=== PATIENT | female | born 1980 | race Caucasian/White ===

== ENCOUNTER 2021-12-03 23:01 | Emergency (ER) | payer SELFPAY ==
[2021-12-03 23:51] LABS: BASOPHIL 1.3 % (0-2); BILIRUBIN NEGATIVE (NEGATIVE); BLOOD 1+ Ery/uL (NEGATIVE); CLARITY CLEAR (CLEAR); COLOR YELLOW (YELLOW); EOSINOPHIL 3.8 % (0-5); GLUCOSE (U) NORMAL (NORMAL); HCT 47.8 % (37.0-47.0); HGB 16.6 g/dl (12.5-16.0); LEUKOCYTES NEGATIVE Leu/uL (NEGATIVE); MCH 31.9 pg (25.0-31.0); MCHC 34.7 g/dL (32.0-36.0); MCV 91.9 fL (78.0-100.0); MONOCYTE 7.7 % (0-12); MPV 10.7 fL (6.0-9.5); NEUTROPHIL 52.8 % (41-80); NITRITE NEGATIVE (NEGATIVE); NRBC 0; PLT 280 K/uL (150-400); PROTEIN NEGATIVE (NEGATIVE); UROBILINOGEN 0.2 mg/dL (0.2-1.0); WBC 11.9 K/uL (4.0-10.5)
[2021-12-03 23:56] LABS: BACTERIA TRACE
[2021-12-04 00:07] LABS: ALBUMIN 3.5 g/dL (3.4-5.0); BILIRUBIN - TOTAL 0.2 mg/dL (0.2-1.0); BUN/CREAT RATIO (CALC) 13.4 RATIO; CREATININE 0.82 mg/dL (0.51-0.95); GLOBULIN (CALCULATION) 3.9 g/dL; POTASSIUM 4.1 mmol/L (3.5-5.1); TOTAL PROTEIN 7.4 g/dL (6.4-8.2)
[2021-12-04] MEDS ORDERED: MEDROL 4MG DOSEP4 MG PO (00:10)
[2021-12-04] MEDS ORDERED: NORCO 5-325 TA1 EACH PO (00:10)
[2021-12-04] MEDS ORDERED: ONDANSETRON ODT4 MG PO (00:10)
== END 2021-12-04 01:22 | disposition home or self-care (01) ==
LOC: FER 23:01
PROVIDERS: Internal Medicine
DX: R10.31 Right lower quadrant pain (principal); R11.0 Nausea; M54.50 Low back pain, unspecified; F17.210 Nicotine dependence, cigarettes, uncomplicated; Z91.040 Latex allergy status; Z88.5 Allergy status to narcotic agent
CPT/HCPCS: 36415; 80053; 81001; 83690; 84145; 85025; J1100; J1170; J2405